=== PATIENT | female | born 1990 | race African-American/Black ===

== ENCOUNTER 2016-12-18 11:03 | Emergency (ER) | payer OTHER ==
[~2016-12-18] VITALS: Ht 172.7 cm; Wt 118.0 kg
[2016-12-18 15:04] VITALS: BP 111/66
== END 2016-12-18 15:05 | disposition home or self-care (01) ==
LOC: ER 12:59
DX: J02.9 Acute pharyngitis, unspecified (principal); T16.1XXA Foreign body in right ear, initial encounter; R05 Cough; H92.01 Otalgia, right ear; F12.10 Cannabis abuse, uncomplicated; F17.200 Nicotine dependence, unspecified, uncomplicated; Z88.6 Allergy status to analgesic agent; Z88.8 Allergy status to other drugs, medicaments and biological substances
CPT/HCPCS: 69200; 99284